=== PATIENT | female | born 1985 | race Caucasian/White ===

== ENCOUNTER 2021-12-03 16:35 | Emergency (ER) | payer OTHER ==
[2021-12-03] MEDS ORDERED: ZANAFLEX4 MG PO (21:46)
== END 2021-12-03 22:11 | disposition home or self-care (01) ==
LOC: ER1 16:35
DX: M54.41 Lumbago with sciatica, right side (principal); K21.9 Gastro-esophageal reflux disease without esophagitis; Z90.49 Acquired absence of other specified parts of digestive tract; Z90.710 Acquired absence of both cervix and uterus; Z88.7 Allergy status to serum and vaccine
CPT/HCPCS: 72100; 96372; 99283; J1885